=== PATIENT | male | born 2000 ===

== ENCOUNTER 2021-11-11 10:42 | Emergency (ER) | payer SELFPAY ==
[~2021-11-11] VITALS: Ht 165.1 cm; Wt 59.0 kg
[2021-11-11] MEDS: SODIUM CHLORIDE 0.9% 1,000 ML IVB ONE (11:35)
[2021-11-11 11:40] LABS: Basophils # (auto) 0 10 ^3/uL (0-0.2); Basophils % (auto) 0.1 % (0.0-2.0); Eosinophils # (auto) 0 10 ^3/uL (0-0.8); Eosinophils % (auto) 0.3 % (0.0-7.0); Hematocrit 43.7 % (41.0-53.0); Hemoglobin 14.7 g/dL (13.5-17.5); Lymphocytes # (auto) 0.3 10 ^3/uL (0.4-5.4); Lymphocytes % (auto) 4.9 % (10.0-50.0); Mean Corpuscular Hemoglobin 29.5 pg (28.0-32.0); Mean Corpuscular Hgb Conc. 33.6 g/dL (32.0-36.0); Mean Corpuscular Volume 87.7 fL (80.0-100.0); Monocytes # (auto) 0.7 10 ^3/uL (0-1.3); Monocytes % (auto) 10.1 % (0.0-12.0); Neutrophils # (auto) 5.8 10 ^3/uL (1.6-8.6); Neutrophils % (auto) 84.6 % (37.0-80.0); Red Blood Cells 4.98 10^6/uL (4.5-5.90); Red Cell Distribution Width 12.8 % (11.8-14.3); White Blood Cell 6.8 10^3/uL (4.4-10.8)
[2021-11-11 11:56] LABS: Albumin 4.6 g/dL (3.4-5.0); Potassium 3.9 mmol/L (3.5-5.1)
[2021-11-11 12:02] LABS: BUN/Creatinine Ratio 11.3; Bilirubin, Total 0.7 mg/dL (0.2-1.0); Calcium 9.3 mg/dL (8.5-10.1); Total Protein 8.1 g/dL (6.4-8.2)
[2021-11-11 12:03] LABS: Urine WBC None Seen /hpf (0 - 3)
[2021-11-11 12:09] LABS: Urine Bacteria NONE SEEN /hpf (None Seen); Urine Blood Negative /uL (Negative)
[2021-11-11] MEDS: ONDANSETRON HCL 4 MG/2 ML VIAL IV ONE (13:55)
[2021-11-11] MEDS: MORPHINE SULFATE 4 MG/ML SYR/VIAL IV ONE (13:56)
[2021-11-11] MEDS ORDERED: ONDA-144 PO (13:58)
[2021-11-11] MEDS ORDERED: METH4PAK PO (13:58)
[2021-11-11] MEDS ORDERED: AZIT1POW PO (13:58)
[2021-11-11] MEDS: ACETAMINOPHEN 325 MG TAB PO ONE (14:04)
[2021-11-11 14:44] VITALS: BP 122/57
== END 2021-11-11 14:39 | disposition home or self-care (01) ==
LOC: EDBD 10:42 → ER 11:02 → EDBD 11:02 → ER 14:39
DX: U07.1 COVID-19 (principal); R11.2 Nausea with vomiting, unspecified; J45.909 Unspecified asthma, uncomplicated
CPT/HCPCS: 36415; 74176; 80053; 81001; 82150; 83690; 85025; 87426; 96361; 96374; 96375; 99284; J2270; J2405